=== PATIENT | male | born 1990 | race Caucasian/White ===

== ENCOUNTER 2021-09-12 14:16 | Outpatient (CLI) | payer OTHER ==
--- NOTE | 2021-09-12 16:53 | MRI Report ---
PROCEDURE: Knee LT W/O INDICATIONS: KNEE PAIN TECHNIQUE: Noncontrast sagittal PD fast spin echo and T2 fast spin echo with fat saturation, sagittal 3-D gradie nt sequence with fat saturation; coronal T1 spin echo and PD fast spin echo with fat saturation, and axial PD fast spin echo with fat saturation through the knee. COMPARISON: None. FINDINGS: Image quality: Excellent. Menisci: The medial and lateral menisci demonstrate normal morphology and internal signal. The meni scal root ligaments appear intact. Cruciate ligaments: The anterior and posterior cruciate ligaments appear intact. Medial structures: The medial collateral ligament appears intact Visualized portions of the pes anse rinus tendons appear normal. No abnormal bursal fluid. Lateral structures: The lateral collateral ligament, long and short heads of the biceps femoris tend on appear intact. The popliteus tendon appears normal. Iliotibial band appears normal. Anterior structures: The quadriceps and patellar tendons appear intact. Patellar alignment is mu l. No femoral trochlear dysplasia or ventral trochlear prominence. Mild edema in the superolateral a spect of the infrapatellar fat pad. Bones and cartilage: No bone marrow contusions or fractures. Mild tricompartment articular osteophyt e formation. Mild articular cartilage loss diffusely overlies the weightbearing aspects of the medial femoral condyle and medial tibial plateau. Severe articular cartilage loss overlies the central femo ral trochlea. Joint space: There is physiologic knee joint fluid. No Wyatt's cyst. Normal appearing synovial pli are incidentally noted. IMPRESSION: 1. No internal derangement. 2. Tricompartmental osteoarthritis with associated articular cartilage loss, worst in the patellofemo ral compartment. Findings which are consistent with lateral patellofemoral friction syndrome in the a formerly [facility] clinical setting. Reviewed by: Gentyr Robles MD on 09/12/2021 4:52 PM PST Approved by: Gentry Robles MD on 09/12/2021 4:52 PM PST Station ID: [id number]
== END 2021-09-12 14:17 | disposition home or self-care (01) ==
LOC: DI 14:16
PROVIDERS: ATTEND Physician Assistant
DX: M17.12 Unilateral primary osteoarthritis, left knee (principal)

== ENCOUNTER 2022-03-14 07:50 | Outpatient (CLI) | payer OTHER ==
--- NOTE | 2022-03-14 16:19 | XRAY Report ---
PROCEDURE: Knee 4 View LT INDICATIONS: LEFT KNEE PAIN TECHNIQUE: 4 views of the left knee(s) were acquired. COMPARISON: None. FINDINGS: Bones: No fractures or dislocations. No suspicious bony lesions. Soft tissues: No joint effusion. No suspicious soft tissue calcifications. IMPRESSION: No acute or significant abnormality of the left knee. Reviewed by: Clemente Hewitt on 03/14/2022 4:18 PM PDT Approved by: Clemente Hewitt on 03/14/2022 4:18 PM PDT Station ID: [id number]
== END 2022-03-14 23:59 | disposition home or self-care (01) ==
LOC: DI.WOS 07:50
PROVIDERS: ATTEND Physician Assistant
DX: M25.562 Pain in left knee (principal)